=== PATIENT | female | born 1925 | race Caucasian/White ===

== ENCOUNTER → 2016-08-06 | Outpatient (CLI) | payer OTHER, BC | END | disposition home or self-care (01) | DX: M16.11 Unilateral primary osteoarthritis, right hip (principal); R26.2 Difficulty in walking, not elsewhere classified; M25.551 Pain in right hip; M25.651 Stiffness of right hip, not elsewhere classified; M62.81 Muscle weakness (generalized) | CPT/HCPCS: 97110 GP; 97150 GO; 97161 GP; 97165 GO; G8978 GP; G8979 GP; G8980 GP; G8984 GO; G8985 GO; G8986 GO ==

== ENCOUNTER 2016-08-26 05:32 | Inpatient (IN) | payer OTHER, BC ==
[~2016-08-26] VITALS: Ht 165.1 cm; Wt 75.0 kg
[~2016-08-26 05:32] MED LIST: ASCORBIC ACID500 M3 PO; ASPIR 8181 M1 PO; CENTRUM SILVER1 EAC4 PO; FISH OIL 1,2001 EAC4 PO; IRON325 MG PO; LASIX20 MG PO; PRAVASTATIN SOD10 MG PO; PROBIOTIC1 EAC1 PO; PROCARDIA XL60 MG PO; TOPROL XL100 MG PO
[2016-08-26] MEDS ORDERED: TYLENOL ARTHRI650 MG PO (06:37)
[2016-08-26 06:41] VITALS: BP 197/81
[2016-08-26 13:05] LABS: HEMATOCRIT 25.3 % (36.0-46.0); MCH 32.2 PG (29.0-34.0); MCHC 33.2 G/DL (30.0-36.0); MCV 96.9 FL (83-99); MEAN PLAT.VOLUME 11.9 uM^3 (9.5-12.4); PLATELET COUNT 150 K/uL (156-360); RBC DIS.WIDTH-CV 12.7 % (11.8-14.6); RBC DIS.WIDTH-SD 44.6 % (39-53); WHITE BLOOD COUNT 18.1 K/uL (4.1-10.2)
[2016-08-26 13:09] LABS: RED BLOOD COUNT 2.61 M/uL (3.80-5.20)
[2016-08-26 17:05] VITALS: BP 138/60
[2016-08-26 20:08] VITALS: BP 145/63
[2016-08-26 23:10] VITALS: BP 128/50
[2016-08-27 03:55] VITALS: BP 128/60
[2016-08-27 07:01] LABS: ANION GAP 7 MEQ/L (2-14); CHLORIDE 107 MEQ/L (99-109); GFR ESTIMATE (CALCULATED) 41 mL/min/; GLUCOSE 125 mg/dL (70-99); POTASSIUM 4.8 MEQ/L (3.7-5.4); SAMPLE HEMOLYSIS CHECK 0; SAMPLE ICTERIC CHECK 0; SAMPLE LIPEMIA CHECK 0; SODIUM 139 MEQ/L (136-147); UREA NITROGEN (BUN) 39 mg/dL (9-23)
[2016-08-27 07:55] VITALS: BP 134/57
[2016-08-27 12:12] VITALS: BP 125/53
[2016-08-27 16:53] VITALS: BP 121/49
[2016-08-27 20:06] VITALS: BP 125/49
[2016-08-28] VITALS (13 sets, daily range): BP systolic 111–136; BP diastolic 48–74
[2016-08-28 07:57] LABS: EOSINOPHIL (%) 0.1 % (0-5); HEMATOCRIT 19.3 % (36.0-46.0); IMMATURE GRANULOCYTE (%) 0.6 % (0.0-0.7); IMMATURE GRANULOCYTE COUNT 0.1 K/uL; INSTRUMENT ABS NEUTROPHIL CT 12.5 K/uL; LYMPHOCYTE COUNT 1.1 K/uL (1.0-2.8); MCH 31.9 PG (29.0-34.0); MCHC 33.7 G/DL (30.0-36.0); MCV 94.6 FL (83-99); MEAN PLAT.VOLUME 11.8 uM^3 (9.5-12.4); MONOCYTE (%) 8.5 % (3-12); MONOCYTE COUNT 1.3 K/uL (0-0.8); NEUTROPHIL (%) 83.6 % (45-76); NEUTROPHIL COUNT 12.5 K/uL (1.8-6.4); PLATELET COUNT 107 K/uL (156-360); RBC DIS.WIDTH-CV 12.7 % (11.8-14.6); RBC DIS.WIDTH-SD 44.3 % (39-53); RED BLOOD COUNT 2.04 M/uL (3.80-5.20)
[2016-08-28 08:05] LABS: ANION GAP 8 MEQ/L (2-14); CHLORIDE 101 MEQ/L (99-109); GFR ESTIMATE (CALCULATED) 35 mL/min/; GLUCOSE 120 mg/dL (70-99); POTASSIUM 4.5 MEQ/L (3.7-5.4); SAMPLE HEMOLYSIS CHECK 0; SAMPLE ICTERIC CHECK 0; SAMPLE LIPEMIA CHECK 0; UREA NITROGEN (BUN) 43 mg/dL (9-23)
[2016-08-28 08:06] LABS: SODIUM 127 MEQ/L (136-147)
[2016-08-29 01:05] VITALS: BP 120/82
[2016-08-29 04:00] VITALS: BP 150/65
[2016-08-29 06:50] LABS: EOSINOPHIL (%) 0.4 % (0-5); EOSINOPHIL COUNT 0.1 K/uL (0-0.3); HEMATOCRIT 24.8 % (36.0-46.0); IMMATURE GRANULOCYTE COUNT 0.1 K/uL; INSTRUMENT ABS NEUTROPHIL CT 11.5 K/uL; LYMPHOCYTE COUNT 0.8 K/uL (1.0-2.8); MCH 31.4 PG (29.0-34.0); MCHC 34.7 G/DL (30.0-36.0); MEAN PLAT.VOLUME 11.5 uM^3 (9.5-12.4); MONOCYTE COUNT 1.2 K/uL (0-0.8); NEUTROPHIL COUNT 11.5 K/uL (1.8-6.4); NRBC (%) 0.1 /100 WBC (0-0); PLATELET COUNT 114 K/uL (156-360); RBC DIS.WIDTH-CV 16.4 % (11.8-14.6); RBC DIS.WIDTH-SD 53.5 % (39-53); WHITE BLOOD COUNT 13.6 K/uL (4.1-10.2)
[2016-08-29 06:52] LABS: ANION GAP 8 MEQ/L (2-14); CHLORIDE 99 MEQ/L (99-109); GFR ESTIMATE (CALCULATED) 38 mL/min/; GLUCOSE 105 mg/dL (70-99); POTASSIUM 4.4 MEQ/L (3.7-5.4); SAMPLE HEMOLYSIS CHECK 0; SAMPLE ICTERIC CHECK 0; SAMPLE LIPEMIA CHECK 0; SODIUM 128 MEQ/L (136-147); UREA NITROGEN (BUN) 44 mg/dL (9-23)
[2016-08-29 06:54] LABS: MCV 90.5 FL (83-99); RED BLOOD COUNT 2.74 M/uL (3.80-5.20)
[2016-08-29 08:01] VITALS: BP 137/54
[2016-08-29] MEDS ORDERED: SENNA PLUS TAB1 EACH PO (09:46)
[2016-08-29] MEDS ORDERED: LOVENOX30 MG/0.3 SC (09:46)
[2016-08-29] MEDS ORDERED: HYDROCODON-ACE1 EAC7 PO (09:46)
[2016-08-29] MEDS ORDERED: CELECOXIB200 MG PO (09:46)
== END 2016-08-29 13:26 | DRG 470 ==
LOC: 2SOUTH 05:32 → 3EAST 05:32 → 2SOUTH 12:16 → 3EAST 16:29
PROVIDERS: Nurse Anesthetist, Certified Registered; Orthopaedic Surgery
PROC: 0SR902Z Replacement of Right Hip Joint with Metal on Polyethylene Synthetic Substitute, Open Approach (ICD-10-PCS; principal; 2016-08-26)
PROC: 30233N1 Transfusion of Nonautologous Red Blood Cells into Peripheral Vein, Percutaneous Approach (ICD-10-PCS; 2016-08-28)
DX: M16.11 Unilateral primary osteoarthritis, right hip (principal); D62 Acute posthemorrhagic anemia; I10 Essential (primary) hypertension; E78.00 Pure hypercholesterolemia, unspecified; G47.33 Obstructive sleep apnea (adult) (pediatric); J44.9 Chronic obstructive pulmonary disease, unspecified; Z60.2 Problems related to living alone; Z95.5 Presence of coronary angioplasty implant and graft; Z79.82 Long term (current) use of aspirin; Z87.891 Personal history of nicotine dependence
CPT/HCPCS: 36415; 71010; 73501; 76000; 80048; 85014; 85018; 85025; 85027; 86870; 86900; 86901; 86905; 86920; 86999; 94799; C1713; C1776; J0131; J0690; J1100; J1170; J1650; J2405; J2710; J2765; J3010; J7030; J7050; P9016; P9045; P9047